=== PATIENT | male | born 1990 | race Caucasian/White ===

== ENCOUNTER 2016-09-20 17:36 | Emergency (ER) | payer BC ==
[~2016-09-20] VITALS: Ht 187.9 cm; Wt 93.0 kg
[~2016-09-20 17:36] MED LIST: AMOXICILLIN500 MG PO; ATIVAN1 MG PO; BACTRIM DS 8001 TAB PO; EES400 MG PO; FLOMAX0.4 MG PO; IMODIUM ADVANCE1 TAB PO; KEFLEX500 MG PO; KLONOPIN1 M1 PO; LEVOFLOXACIN500 MG PO; MOTRIN800 MG PO; MYORISAN PO; NEXIUM40 MG PO; NKHM; OMNICEF300 MG PO; PAXIL20 MG PO; PERIDEX 14401440 ML PO; PREVACID30 M1 PO; SUBOXONE 2 MG-01 TA2 SL; TRAZODONE HCL50 MG PO; VALIUM10 MG PO; ZANTAC150 MG PO; ZOFRAN ODT4 MG SL; ZOFRAN4 MG PO
[2016-09-20] MEDS ORDERED: AMOXICILLIN500 M2 PO (19:13)
[2016-09-20] MEDS ORDERED: PERCOCET 325 MG1 TA2 PO (19:17)
== END 2016-09-20 19:46 | disposition home or self-care (01) ==
LOC: ED 17:36
DX: S41.151A Open bite of right upper arm, initial encounter (principal); S01.85XA Open bite of other part of head, initial encounter; W54.0XXA Bitten by dog, initial encounter; Y93.89 Activity, other specified; Y92.009 Unspecified place in unspecified non-institutional (private) residence as the place of occurrence of the external cause; Y99.9 Unspecified external cause status

== ENCOUNTER 2017-11-03 20:06 | Emergency (ER) | payer BC ==
[~2017-11-03] VITALS: Ht 187.9 cm; Wt 93.0 kg
[~2017-11-03 20:06] MED LIST changes: +AMOXICILLIN500 M2 PO; +PERCOCET 325 MG1 TA2 PO
[2017-11-03] MEDS ORDERED: OMNICEF300 MG PO (21:26)
== END 2017-11-03 21:31 | disposition home or self-care (01) ==
LOC: ED 20:06
DX: J06.9 Acute upper respiratory infection, unspecified (principal); H66.93 Otitis media, unspecified, bilateral; Z98.890 Other specified postprocedural states; Z87.01 Personal history of pneumonia (recurrent)

== ENCOUNTER 2017-12-28 14:44 | Emergency (ER) | payer BC ==
[~2017-12-28] VITALS: Ht 185.4 cm; Wt 68.0 kg
[2017-12-28 15:32] LABS: BASO % 0.2 % (0.0-1.0); EOS % 0.2 % (1.0-4.0); HEMATOCRIT 42.9 % (42.0-52.0); HEMOGLOBIN 14.3 g/dl (14.0-18.0); LYMPH # 1.4 10*3/uL (1.3-4.4); LYMPH % 29.8 % (27.0-41.0); MEAN CELL VOLUME 85.6 fl (80.0-94.0); MEAN CORPUSCULAR HGB 28.5 pg (27.0-31.0); MEAN CORPUSCULAR HGB CONC 33.3 g/dl (33.0-37.0); MEAN PLATELET VOLUME 12.7 fl (9.6-12.3); MONO # 0.3 10*3/uL (0.1-1.0); MONO % 5.8 % (3.0-9.0); NEUT # 3.1 10*3/uL (2.3-7.9); NEUT % 63.8 % (47.0-73.0); PLATELET COUNT AUTOMATED 121 10*3/uL (130-400); RED BLOOD COUNT 5.01 10*6/uL (4.50-5.90); RED CELL DISTRI WIDTH 11.7 % (0-14.5); WHITE BLOOD COUNT 4.8 10*3/uL (4.8-10.8)
[2017-12-28 15:49] LABS: ALBUMIN 3.9 gm/dl (3.1-4.5); ALKALINE PHOSPHATASE 57 U/L (45-117); BUN 19 mg/dl (7-24); CHLORIDE 103 mmol/L (98-107); CREATININE 0.96 mg/dL (0.70-1.30); SGOT/AST 17 IU/L (3-35); SGPT/ALT 22 U/L (12-78); SODIUM 138 mmol/L (136-145)
[2017-12-28] MEDS ORDERED: KLONOPIN1 M1 PO (16:24)
== END 2017-12-28 16:27 | disposition home or self-care (01) ==
LOC: ED 14:44
PROVIDERS: Emergency Medicine
DX: F41.8 Other specified anxiety disorders (principal); Z98.890 Other specified postprocedural states; Z79.899 Other long term (current) drug therapy

== ENCOUNTER → 2018-04-17 | Outpatient (CLI) | payer BC ==
[2018-04-17 15:19] LABS: BASO % 0.3 % (0.0-1.0); EOS # 0.1 10*3/uL (0.0-0.4); HEMATOCRIT 43.1 % (42.0-52.0); HEMOGLOBIN 14.8 g/dl (14.0-18.0); LYMPH # 2.3 10*3/uL (1.3-4.4); LYMPH % 36.7 % (27.0-41.0); MEAN CELL VOLUME 86.9 fl (80.0-94.0); MEAN CORPUSCULAR HGB 29.8 pg (27.0-31.0); MEAN CORPUSCULAR HGB CONC 34.3 g/dl (33.0-37.0); MEAN PLATELET VOLUME 12.2 fl (9.6-12.3); MONO # 0.4 10*3/uL (0.1-1.0); MONO % 6.1 % (3.0-9.0); NEUT # 3.5 10*3/uL (2.3-7.9); NEUT % 55.6 % (47.0-73.0); PLATELET COUNT AUTOMATED 158 10*3/uL (130-400); RED BLOOD COUNT 4.96 10*6/uL (4.50-5.90); RED CELL DISTRI WIDTH 11.9 % (0-14.5); WHITE BLOOD COUNT 6.2 10*3/uL (4.8-10.8)
[2018-04-17 15:48] LABS: ALKALINE PHOSPHATASE 73 U/L (45-117); BUN 23 mg/dl (7-24); CHLORIDE 104 mmol/L (98-107); CHOLESTEROL 124 mg/dL (<200); CREATININE 1.09 mg/dL (0.70-1.30); FREE T4 0.98 ng/dl (0.76-1.46); POTASSIUM 3.7 mmol/L (3.5-5.1); SGOT/AST 47 IU/L (3-35); SGPT/ALT 68 U/L (12-78); SODIUM 139 mmol/L (136-145); TOTAL PROTEIN 6.9 gm/dL (6.4-8.2); TRIGLYCERIDES 118 mg/dl (<150); VLDL CHOLESTEROL 24 mg/dL (6-40)
[2018-04-17 15:49] LABS: HDL CHOLESTEROL 56 mg/dl (40-60); LDL CHOLESTEROL 44 mg/dL (9-159)
[2018-04-17 15:55] LABS: THYROID STIM HORMONE (HS) 0.985 uIU/ml (0.358-4.75)
[2018-04-17 17:15] LABS: VITAMIN D, 25-HYDROXY 29.7 ng/mL (30-100)
[2018-04-18 05:07] LABS: FREE T3 010389 2.6 pg/mL (2.0-4.4)
[2018-04-18 07:11] LABS: DHEA SULFATE 507.8 ug/dL (138.5-475.2); FOLLICLE STIMULATING HORMONE 3.5 mIU/mL (1.5-12.4); LUTEINIZING HORMONE 004283 5.2 mIU/mL (1.7-8.6)
[2018-04-18 08:13] LABS: PROSTATE SPECIFIC AG, SERUM 0.8 ng/mL (0.0-4.0)
[2018-04-18 09:05] LABS: PROSTATE SPECIFIC AG FREE 0.28 ng/mL
[2018-04-18 22:03] LABS: TESTOSTERONE FREE, (DIRECT) 12.2 pg/mL (9.3-26.5)
[2018-04-20 15:07] LABS: T3 REVERSE 070104 15.3 ng/dL (9.2-24.1)
[2018-04-21 17:04] LABS: DIHYDROTESTOSTERONE 19 ng/dL (.)
== END | disposition home or self-care (01) ==
LOC: LAB 14:41
PROVIDERS: Family Medicine
DX: Z13.21 Encounter for screening for nutritional disorder (principal); Z13.29 Encounter for screening for other suspected endocrine disorder; R68.89 Other general symptoms and signs; E55.9 Vitamin D deficiency, unspecified; E27.9 Disorder of adrenal gland, unspecified; D51.9 Vitamin B12 deficiency anemia, unspecified; E34.9 Endocrine disorder, unspecified; E03.9 Hypothyroidism, unspecified; E29.1 Testicular hypofunction; R63.5 Abnormal weight gain; R53.83 Other fatigue; F41.0 Panic disorder [episodic paroxysmal anxiety]; G47.00 Insomnia, unspecified